=== PATIENT | male | born 1990 | race African-American/Black ===

== ENCOUNTER 2018-09-10 12:21 | Emergency (ER) | payer OTHER ==
[2018-09-10 13:29] LABS: BILIRUBIN,URINE NEGATIVE (NEGATIVE); GLUCOSE, URINE (UA) NEGATIVE (NEGATIVE); KETONES,URINE (UA) NEGATIVE (NEGATIVE); LEUKOCYTE ESTERASE, URINE NEGATIVE (NEGATIVE); NITRITE,URINE NEGATIVE (NEGATIVE); OCCULT BLOOD,URINE TRACE-INTA (NEGATIVE); PH,URINE 6.5 PH (5.0-7.5); PROTEIN,URINE NEGATIVE (NEGATIVE); UROBILINOGEN,URINE 0.2 (NORMAL) E.U./dL (NORMAL)
[2018-09-10 13:30] LABS: CLARITY,URINE CLEAR (CLEAR)
--- NOTE | 2018-09-10 13:57 | ED Physician Documentation ---
History of Present Illness - Stated complaint Stated Complaint: MALE - Chief complaint Chief Complaint: UTI - History obtained from History obtained from: Patient - Additonal information Additional information: Patient is a previously healthy 28-year-old male presenting with concern for STD as he had unprotected sex several days ago and now has pain with urination. Patient denies changes to his penis or other penile drainage. Patient also denies any testicular changes including pain, swelling, or erythema. Patient denies rash or other lesions to the groin, as well as abdominal pain, nausea, vomiting, fever. No other improving or worsening factors noted. No history of STDs. Review of Systems Constitutional: denies: Fever GI: denies: Abdominal Pain, Nausea, Vomiting : reports: Dysuria Skin: denies: Rash, Lesions PD PAST MEDICAL HISTORY - Past Medical History Past Medical History: No Endocrine/Autoimmune: None - Past Surgical History Past Surgical History: No - Present Medications Home Medications: Ambulatory Orders Medication Instructions Recorded Confirmed Ibuprofen [Motrin] 600 mg PO TID #20 tab 12/30/15 Methocarbamol [Robaxin] 500 mg PO Q6H PRN #15 tablet 12/30/15 Hydrocodone/Acetaminophen 10 ml PO Q6H PRN #120 ml 01/06/16 [Hydrocodon-Acetamin 7.5-325/15] Sulfamethox/Trimet 200/40 Susp 20 ml PO BID #280 ml 01/06/16 [Bactrim Susp] - Allergies Allergies/Adverse Reactions: Allergies Allergy/AdvReac Type Severity Reaction Status Date / Time No Known Drug Allergies Allergy Verified 01/06/16 22:09 - Social History Does the pt smoke?: No Smoking Status: Never smoker Does the pt drink ETOH?: Yes Does the pt have substance abuse?: No - Immunizations Immunizations are current?: Yes - POLST Patient has POLST: No PD ED PE NORMAL - Vitals Vital signs reviewed: Yes - General General: Alert and oriented X 3, No acute distress, Well developed/nourished - HEENT HEENT: Atraumatic, Moist mucous membranes - Respiratory Respiratory: No respiratory distress - Abdomen Abdomen: Soft, Non tender, Non distended - Derm Derm: Normal color, Warm and dry, No rash - Extremities Extremities: No deformity, No tenderness to palpate - Neuro Neuro: Alert and oriented X 3, No motor deficit, No sensory deficit - Psych Psych: Normal mood, Normal affect Results - Vitals Vitals: Vital Signs - 24 hr 09/10/18 12:43 Temperature 36.7 C Heart Rate 79 Respiratory 16 Rate Blood Pressure 143/73 H O2 Saturation 100 Oxygen O2 Source Room air - Labs Labs: Laboratory Tests 09/10/18 13:15 Urine Color YELLOW Urine Clarity CLEAR Urine pH 6.5 Ur Specific [place] 1.020 Urine Protein NEGATIVE Urine Glucose (UA) NEGATIVE Urine Ketones NEGATIVE Urine Occult Blood TRACE-INTA Urine Nitrite NEGATIVE Urine Bilirubin NEGATIVE Urine Urobilinogen 0.2 (NORMAL) Ur Leukocyte Esterase NEGATIVE Ur Microscopic Review NOT INDICATED Urine Culture Comments NOT INDICATED PD MEDICAL DECISION MAKING - ED course Complexity details: reviewed results, considered differential, d/w patient ED course: Patient presenting with concern for STDs given on protected sex and urinary symptoms. Urinalysis obtained which not find evidence of UTI. Discussed treating empirically with antibiotics, as well as safe sex practices, notifying partners, return precautions, and follow-up. Otherwise, patient denies compl aints physical exam is otherwise benign and do not have high suspicion for other emergent pathology. Departure - Departure Disposition: 01 Home, Self Care Clinical Impression: Exposure to STD Condition: Good Instructions: ED STD Male Treated Follow-Up: your,doctor [Other] - Within 3 Days Comments: Please contact sexual partners to notify of possible STD and otherwise recommend practicing safe sex practices. Please follow-up with primary care physician in next 2 to 3 days and return to ED sooner if experience worsening symptoms or have other concerns.
[2018-09-10] MEDS ORDERED: cefTRIAXone 1 GM VIAL IM STA (14:03)
[2018-09-10] MEDS ORDERED: metroNIDAZOLE 250 MG TABLET PO STA (14:04)
[2018-09-10] MEDS ORDERED: AZITHROMYCIN 250 MG TABLET PO STA (14:05)
[2018-09-10 14:15] VITALS: BP 130/91
[2018-09-10] MEDS ORDERED: LIDOCAINE 1% 2 ML VIAL MC ONE (14:18)
[2018-09-10] MEDS ORDERED: cefTRIAXone 250 MG VIAL IM STA (14:18)
[2018-09-10 21:26] LABS: TRICHOMONAS VAGINALIS DNA NEGATIVE (NEGATIVE)
== END 2018-09-10 14:32 | disposition home or self-care (01) ==
LOC: ED 12:21
DX: R30.0 Dysuria (principal); Z20.2 Contact with and (suspected) exposure to infections with a predominantly sexual mode of transmission
CPT/HCPCS: 81003; 87491; 87591; 87661; 96372; 99282; 99283; A9270; 81001; 87086